=== PATIENT | male | born 1965 | race Caucasian/White ===

== ENCOUNTER → 2022-11-24 09:50 | Outpatient (CLI) | payer OTHER, SELFPAY ==
--- NOTE | ~2022-11-24 | CT_ITS ---
EXAMINATION: CT lung screening DATE: 11/24/2022 10:05 INDICATION: Personal history of nicotine dependence, current smoker with 20 pack year history TECHNIQUE: Computed tomography (CT) of the chest was performed without intravenous contrast. The dose -length product (DLP) was 41.54 mGy-cm. Automated exposure control and iterative reconstruction techn ique were employed. COMPARISON: None FINDINGS: There is mild emphysema. Calcified and noncalcified pleural plaques are noted bilaterally. The lungs are free of acute opacities. No pleural effusion or pneumothorax. No pathologically enlarge d thoracic lymph nodes are identified. The heart size is normal. There is moderate thoracic spondylos is. IMPRESSION: 1. Lung-RADS category 1S: Negative. Continue annual screening with noncontrast low-dose chest CT in 1 2 months. 2. Bilateral calcified and noncalcified pleural plaques which can be seen in the setting of prior asb estos exposure. Reviewed, dictated and finalized at location [facility] [employer] IMPRESSION: 1. Lung-RADS category 1S: Negative. Continue annual screening with noncontrast low-dose chest CT in 12 months. 2. Bilateral calcified and noncalcified pleural plaques which can be seen in th e setting of prior asbestos exposure.
== END ==
PROVIDERS: PCP Internal Medicine; Visit Provider Internal Medicine
DX: Z12.2 Encounter for screening for malignant neoplasm of respiratory organs (principal); J92.9 Pleural plaque without asbestos; F17.210 Nicotine dependence, cigarettes, uncomplicated
CPT/HCPCS: 71271

== ENCOUNTER 2025-01-18 08:39 | Outpatient (CLI) | payer OTHER, SELFPAY ==
--- NOTE | ~2025-01-18 | XR_ITS ---
Clinical Indication: Bronchitis PA and lateral views of the chest: Comparison: None Findings: The lungs are clear, without evidence of focal consolidation or pleural effusion. Cardiome diastinal silhouette is within normal limits. Bones and soft tissues are unremarkable. Impression: Normal chest. Reviewed, dictated and finalized at location . Impression: Normal chest.
== END 2025-01-18 08:40 | disposition home or self-care (01) ==
LOC: MICIMG 08:42
PROVIDERS: PCP Internal Medicine; Visit Provider Internal Medicine
DX: J40 Bronchitis, not specified as acute or chronic (principal)
CPT/HCPCS: 71046